=== PATIENT | female | born 1955 | race African-American/Black ===

== ENCOUNTER 2019-01-16 21:18 | Emergency (ER) | payer MEDICAID ==
[~2019-01-16] VITALS: Ht 157.5 cm; Wt 74.0 kg
[~2019-01-16 21:18] MED LIST: IBUP-1542 PO; LOPE2CAP PO; NITR-58 PO
[2019-01-16 21:21] VITALS: Ht 157.5 cm; Wt 74.0 kg
--- NOTE | 2019-01-16 22:29 | ERD ---
ER Documentation Chief Complaint Chief Complaint AP X YESTERDAY. HPI The patient is a 36-year-old female, presenting to the ER because of diffuse abdominal pain for 1 day, diarrhea, denies hematochezia, complains of nausea but no vomiting, denies fever, chills, neck pain, chest pain, dyspnea. She does not smoke nor drink. She had similar symptoms previously whenever she consumes too much dairy food Past medical history: None Past surgical history: 1 ROS All systems reviewed and are negative except as per history of present illness. Medications Home Meds Active Scripts Ibuprofen* (Ibuprofen*) 600 Mg Tablet, 600 MG PO Q6H PRN for PAIN, #20 TAB Prov:TOO HAIR MD 01/16/19 Loperamide Hcl* (Imodium*) 2 Mg Capsule, 2 MG PO .AFTER EA LOOSE BM PRN for DIARRHEA, #10 TAB Prov:TOO HAIR MD 01/16/19 Nitrofurantoin Monohyd Macrocr* (Macrobid*) 100 Mg Capsr, 100 MG PO BID for 14 Days, CAP Prov:TOO HAIR MD 01/16/19 Allergies Allergies: Coded Allergies: Penicillins (Verified Allergy, Unknown, 01/16/19) Physical Exam Vitals Vital Signs Date Temp Pulse Resp B/P (MAP) Pulse Ox O2 O2 Flow FiO2 Time Delivery Rate 01/16/19 97.8 88 22 181/86 98 21:21 (117) Physical Exam Const: No acute distress. Head: Atraumatic. Eyes: Normal Conjunctiva. ENT: Normal External Ears, Nose and Mouth. Neck: Full range of motion. No meningismus. Resp: Clear to auscultation bilaterally. Cardio: Regular rate and rhythm. Abd: Soft, non distended, normal bowel sounds, vague and diffuse abdominal tenderness, no rigidity/rebound/CVA tenderness. Skin: No petechiae or rashes. Back: No midline or flank tenderness. Ext: No cyanosis, or edema. Neur: Awake and alert. No focal deficit Psych: Normal Mood and Affect. Result Diagram: 01/16/19224901/16/192249 Results 24 hrs Laboratory Tests Test 01/16/19 22:50 01/16/19 23:35 White Blood Count 8.9 10^3/ul Red Blood Count 5.37 10^6/ul Hemoglobin 13.0 g/dl Hematocrit 41.0 % Mean Corpuscular Volume 76.4 fl Mean Corpuscular Hemoglobin 24.2 pg Mean Corpuscular Hemoglobin Concent 31.7 g/dl Red Cell Distribution Width 14.3 % Platelet Count 282 10^3/UL Mean Platelet Volume 10.8 fl Immature Granulocytes % 0.300 % Neutrophils % 87.4 % Lymphocytes % 7.1 % Monocytes % 4.5 % Eosinophils % 0.6 % Basophils % 0.1 % Nucleated Red Blood Cells % 0.0 /100WBC Immature Granulocytes # 0.030 10^3/ul Neutrophils # 7.8 10^3/ul Lymphocytes # 0.6 10^3/ul Monocytes # 0.4 10^3/ul Eosinophils # 0.1 10^3/ul Basophils # 0.0 10^3/ul Nucleated Red Blood Cells # 0.0 10^3/ul Sodium Level 136 mmol/L Potassium Level 3.9 mmol/L Chloride Level 102 mmol/L Carbon Dioxide Level 26 mmol/L Anion Gap 8 Blood Urea Nitrogen 10 mg/dl Creatinine 0.91 mg/dl Est Glomerular Filtrat Rate mL/min > 60 mL/min Glucose Level 127 mg/dl Calcium Level 9.7 mg/dl Total Bilirubin 0.6 mg/dl Direct Bilirubin 0.00 mg/dl Indirect Bilirubin 0.6 mg/dl Aspartate Amino Transf (AST/SGOT) 24 IU/L Alanine Aminotransferase (ALT/SGPT) 18 IU/L Alkaline Phosphatase 168 IU/L Total Protein 8.4 g/dl Albumin 4.1 g/dl Globulin 4.30 g/dl Albumin/Globulin Ratio 0.95 Lipase 65 U/L Bedside Urine pH (LAB) 6.5 Bedside Urine Protein (LAB) Negative Bedside Urine Glucose (UA) Negative Bedside Urine Ketones (LAB) Negative Bedside Urine Blood 1+ Bedside Urine Nitrite (LAB) Negative Bedside Urine Leukocyte Esterase (L 1+ Current Medications Medications Dose Sig/Gopi Start Time Status Last (Trade) Ordered Route PRN Stop Time Admin Dose Reason Admin Ketorolac 15 mg ONCE STAT 01/16/19 DC 01/16/19 Tromethamine IV 22:36 22:51 (Toradol) 01/16/19 22:37 Loperamide 4 mg ONCE ONCE 01/16/19 DC 01/16/19 HCl PO 23:00 22:51 (Imodium Cap) 01/16/19 23:01 Procedures/MDM [place] [id number] Radiology Main Line: [phone] DIAGNOSTIC IMAGING REPORT Patient: KAYLENE PERRIN : 1955 Age: 63 Sex: F MR #: [id number] DOS: 01/16/19 2234 Ordering MD: TOO HAIR MD Location: E/R Room/Bed: PROCEDURE: CT abdomen and pelvis without contrast. CLINICAL INDICATION: Abdominal Pain TECHNIQUE: CT scan of the abdomen and pelvis without oral contrast was performed and is reconstructed at 2.5 mm contiguous axial intervals from the dome of the diaphragm to the inferior pubic rami.. The patient was scanned without intravenous contrast. Sagittal and coronal reformatted images were obtained from the axial source images. The calculated radiation dose measures 886 mGy centimeters. The CTDI measures 15 mGy. Individualized dose optimization technique was used for the performance of this exam. This included 1. Automated exposure control. 2. Adjustment of the mA and / or kV according to the patient's size. 3. Use of iterative reconstructed technique. DICOM images are available. COMPARISON: None. FINDINGS: The lung bases are clear of any infiltrate or nodule. No effusion is seen. The liver is of normal size, contour and attenuation with no mass or ductal dilatation. No gallstones are visualized. No splenic, adrenal or pancreatic abnormalities present. Kidneys are of normal size and contour. No hydronephrosis, calculus or mass Is seen. Ureters are of normal course and caliber with no stone. No bladder mass or stone is present. Uterus and ovaries appear normal. There is no aneurysm. No adenopathy is present. No bowel mass or obstruction is present. The appendix is normal. There is diverticulosis. No phlegmon, ascites or pneumoperitoneum is visualized. The osseous structures are intact. IMPRESSION: No bowel mass or obstruction. Diverticulosis. No evidence of urolithiasis, obstructive uropathy, diverticulitis or appendicitis. .Tk Casanova MD, MD Date Time Electronically viewed and signed by .Tk Casanova MD, on 01/16/2019 23:22 .A/ CC: TOO HAIR MD [phone] MEDICAL MAKING DECISION: The patient is a 63-year-old female, presenting with acute cystitis, acute diarrhea. She was treated with Toradol 30 mg IV for pain, Imodium 4 mg p.o. for diarrhea with good response, is stable for outpatient follow-up Urine Culture is submitted The differential diagnoses considered include but are not limited to cholelithiasis, cholecystitis, choledocholithiasis, cholangitis, pancreatitis, hepatitis, gastritis, peptic ulcer disease, gastric ulcer, appendicitis, cystitis, diverticulitis, partial small bowel obstruction. Departure Diagnosis: Primary Impression: UTI (urinary tract infection) Additional Impression: Diarrhea Condition: Good Comments She was discharged with Macrobid, Imodium, Motrin I discussed the findings with the patient. I advised the patient to follow-up with the primary physician in about 1-2 days, sooner if needed and return if any concern. Disclaimer: Inadvertent spelling and grammatical errors are likely due to EHR/dictation software use and do not reflect on the overall quality of patient care. Also, please note that the electronic time recorded on this note does not necessarily reflect the actual time of the patient encounter. TOO HAIR MD Jan 16, 2019 22:29
[2019-01-16] MEDS ORDERED: KETOROLAC 15 MG INJ IV STA (22:36)
[2019-01-16] MEDS ORDERED: LOPERAMIDE 2 MG CAP PO ONE (23:00)
[2019-01-17 00:06] VITALS: BP 174/85; PULSE 76; RESP 18
== END 2019-01-17 00:24 | disposition home or self-care (01) ==
LOC: E/R 21:18
DX: N39.0 Urinary tract infection, site not specified (principal); R19.7 Diarrhea, unspecified
CPT/HCPCS: 36415; 74176; 80053; 81003; 83690; 85025; 87086; 96374; J1885; Z7502; Z7610

== ENCOUNTER 2019-04-01 15:13 | Emergency (ER) | payer MEDICAID ==
[~2019-04-01] VITALS: Ht 157.5 cm; Wt 80.0 kg
[~2019-04-01 15:13] MED LIST changes: +CIPR500T4 PO; +HYDR-3980 PO; +METR500T PO
[2019-04-01 15:15] VITALS: Ht 157.5 cm; Wt 80.0 kg
[2019-04-01] MEDS ORDERED: HYDROmorphONE 1 MG/ML SYG IV STA (16:27)
[2019-04-01] MEDS ORDERED: SOD CHLORIDE 0.9% 1,000 ML IV STA (16:27)
[2019-04-01] MEDS ORDERED: ONDANSETRON 4 MG INJ IV STA (16:27)
[2019-04-01] MEDS ORDERED: SOD CHLORIDE 0.9% 100 ML ONE (17:22)
[2019-04-01] MEDS ORDERED: IOHEXOL 300MG/ML 150 ML BTL ONE (17:22)
[2019-04-01] MEDS ORDERED: LIDOCAINE 2% VISC 10 ML CUP PO ONE (18:00)
[2019-04-01] MEDS ORDERED: LIDOCAINE 2% VISC 15 ML CUP PO ONE (18:00)
[2019-04-01] MEDS ORDERED: AL HYDROX/MG HYDROX/SIMETH 30 ML CUP PO ONE (18:00)
[2019-04-01 19:42] VITALS: BP 160/89; PULSE 76; RESP 18
== END 2019-04-01 20:09 | disposition home or self-care (01) ==
LOC: E/R 15:13
DX: K57.32 Diverticulitis of large intestine without perforation or abscess without bleeding (principal)
CPT/HCPCS: 74177; 76705; 80053; 83690; 85025; 96361; 96374; 96375; J1170; J2405; J7030; Q9967; Z7502; Z7610